=== PATIENT | female | born 1990 | race Caucasian/White ===

== ENCOUNTER 2016-07-05 16:10 | Outpatient (CLI) | payer MEDICAID ==
[2016-07-05 16:44] VITALS: BP 113/70
== END 2016-07-05 17:35 | disposition home or self-care (01) ==
LOC: TRG 16:10
PROVIDERS: ATTEND Obstetrics & Gynecology
DX: O47.1 False labor at or after 37 completed weeks of gestation (principal); Z3A.38 38 weeks gestation of pregnancy
CPT/HCPCS: 59025

== ENCOUNTER 2016-07-12 05:39 | Inpatient (IN) | payer MEDICAID ==
[2016-07-12] MEDS ORDERED: REGLAN IV ONE (05:50)
[2016-07-12] MEDS ORDERED: PEPCID IV ONE (05:50)
[2016-07-12] MEDS ORDERED: BICITRA PO ONE (05:50)
[2016-07-12] MEDS ORDERED: PITOCin/NS 20 UNIT/1000ML DRIP 20 UNITS/1,000 ML BAG IV SCH ×2 (06:00→11:57)
[2016-07-12] MEDS ORDERED: ANCEF/STERILE WATER 2 GM/20 ML 2 GM/20 ML SYRINGE IV NR (06:00)
[2016-07-12] MEDS: LACTATED RINGERS 1,000 ML IV SCH ×2 (07:00→07:12)
--- NOTE | 2016-07-12 07:20 | Anesthesia Day of Surgery ---
Anesthesia Day of Surgery - Day of Surgery Patient Examined: Yes Patient H&P Reviewed: Yes Patient is NPO: Yes
--- NOTE | 2016-07-12 07:20 | Anesthesia Consultation ---
Anesthesia Consult and Med Hx Date of service: 07/12/16 - Airway Anesthetic Teeth Evaluation: Good ROM Head & Neck: Adequate Mental/Hyoid Distance: Adequate Mallampati Class: Class II Intubation Access Assessment: Probably Good - Pre-Operative Health Status ASA Pre-Surgery Classification: ASA2 Proposed Anesthetic Plan: Epidural, Spinal - Pulmonary Hx Smoking: No Hx Asthma: No COPD: No Hx Pneumonia: No - Cardiovascular System Hx Hypertension: No Hx Coronary Artery Disease: No Hx Heart Attack/AMI: No Hx Angina: No - Central Nervous System Hx Seizures: No CVA: No Hx Psychiatric Problems: No - Gastrointestinal Hx Gastroesophageal Reflux Disease: No - Endocrine Hx Renal Disease: No Hx End Stage Renal Disease: No Hx Liver Disease: No Hx Non-Insulin Dependent Diabetes: No Hx Thyroid Disease: No Hx Hypothyroidism: No Hx Hyperthyroidism: No - Hematic Hx Anemia: No Hx Sickle Cell Disease: No - Other Systems Hx Alcohol Use: No
[2016-07-12 07:23] LABS: Basophils % (Auto) 0.3 % (0.0-1.8); Eosinophils % (Auto) 0.6 % (0.0-4.3); Hematocrit 31.7 % (30.3-42.9); Hemoglobin 10.6 gm/dl (10.1-14.3); Mean Corpuscular HGB Conc 33 % (30-34); Mean Corpuscular Volume 74 fl (79-97); Platelet Count 296 K/mm3 (140-440); Red Blood Count 4.27 M/mm3 (3.65-5.03); Red Cell Distribution Width 16.1 % (13.2-15.2)
[2016-07-12 07:25] LABS: Mean Corpuscular Hemoglobin 25 pg (28-32)
--- NOTE | 2016-07-12 07:25 | History and Physical Report ---
History of Present Illness Date of examination: 07/12/16 Date of admission: 07/12/16 05:39 Chief complaint: Scheduled section History of present illness: Patient is a 25-year-old female 011 REBEKA 07/12/16 at 40 weeks with a history of previous 1 and presents for scheduled section. She reports rare contractions and denies vaginal bleeding or leakage of fluid. She has had care [facility] [employer], located by a low-lying posterior placenta that has resolved and chronic hypertension. Past History Past Medical History: hypertension Past Surgical History: section Family/Genetic History: diabetes, hypertension Social history: no significant social history - Obstetrical History Expected Date of Delivery: 07/12/16 Actual Gestation: 40 Week(s) 0 Day(s) : 3 Para: 1 Hx # Term Pregnancies: 1 Number of Pregnancies: 0 Spontaneous Abortions: 1 Induced : 0 Number of Living Children: 1 Medications and Allergies Allergies Allergy/AdvReac Type Severity Reaction Status Date / Time No Known Allergies Allergy Verified 07/05/16 16:44 Home Medications Medication Instructions Recorded Confirmed Last Taken Type Cgo286/FA/Omega3/Dha/Fish Oil 1 each PO DAILY 07/05/16 07/05/16 07/05/16 09:00 History [ Gummies] 1 Active Meds: Active Medications Lactated Ringer's (Lactated Ringers) 1,000 mls @ 2,250 mls/hr IV PREOP KATELYN Stop: 07/13/16 06:27 Last Admin: 07/12/16 07:12 Dose: 2,250 mls/hr Oxytocin/Sodium Chloride (Pitocin/Ns 20 Unit/1000ml Drip) 20 units in 1,000 mls @ 0 mls/hr IV TITR KATELYN PRN Reason: As Directed Fentanyl/Bupivacaine/Sodium Chlor (Fentanyl-Bupiv 2 Mcg/Ml-0.125%) 100 mls @ 8 mls/hr EPIDURAL TITR KATELYN PRN Reason: Protocol Influenza Virus Vaccine Quadrival (Fluarix Quad [id number](36 Mos+)) 60 mcg IM .ONCE ONE Stop: 07/12/16 06:59 Naloxone HCl (Narcan 0.4 Mg/1 Ml) 0.2 mg IV Q2MIN PRN PRN Reason: Res Rate </= 8 or 02 SAT < 92% Stop: 07/14/16 07:22 Ondansetron HCl (Zofran) 4 mg IV Q8H PRN PRN Reason: Nausea And Vomiting Promethazine HCl (Phenergan) 25 mg PO Q6H PRN PRN Reason: Nausea And Vomiting Promethazine HCl (Phenergan) 25 mg HI Q6H PRN PRN Reason: Nausea And Vomiting Sodium Chloride (Sodium Chloride Flush Syringe 10 Ml) 10 ml IV PRN NR Review of Systems All systems: negative - Vital Signs Vital signs: Vital Signs Pulse Pulse Ox 78 98 07/12/16 06:07 07/12/16 06:07 Temp Pulse Resp BP Pulse Ox 97.7 F 101 H 22 122/77 96 07/12/16 06:29 07/12/16 07:05 07/12/16 06:29 07/12/16 06:29 07/12/16 07:05 - Physical Exam Breasts: Positive: deferred Cardiovascular: Regular rate Lungs: Positive: Clear to auscultation Abdomen: Positive: soft (obese, gravid ) Uterus: Positive: enlarged (gravid ) Extremities: Positive: edema (trace ) - Obstetrical FHR: auscultation normal Uterine Contraction Monitor Mode: External Uterine Contraction Pattern: Irregular Uterine Tone Measurement Phase: Resting Results Result Diagrams: 07/12/16 06:35 Abnormal lab results 07/12/16 Range/Units 06:35 [place] % (Auto) 8.6 H (0.0-7.3) % [place] # 0.9 H (0.0-0.8) K/mm3 All other labs normal. Assessment and Plan A: IUP at 40w0d Previous x 1 Obesity Hypertension P: Proceed with repeat section and other indicated procedures.
[2016-07-12] MEDS ORDERED: MORPHINE ONE (07:39)
[2016-07-12] MEDS ORDERED: ePHEDrine SULFATE ONE (07:53)
--- NOTE | 2016-07-12 07:57 | Procedure Note ---
OB Delivery Note - Delivery Date of Delivery: 07/12/16 Surgeon: ARETHA GOLDSTEIN Estimated blood loss: other (800 mL) - Section Preop diagnosis: repeat Postop diagnosis: same section procedure: section, repeat low transverse Disposition: PACU Complications: none Narrative: Please see operative note - A at 1 minute: 8 at 5 minutes: 8 Infant Gender: Female (3657g (8lb 1 oz))
--- NOTE | 2016-07-12 07:57 | Operative Report ---
Operative Report Operative Report: Date of procedure: 07/12/2016 Preoperative diagnosis: #1 Intrauterine at 40 weeks 0 days #2 Previous section 1 #3 Obesity #4 Chronic hypertension Postoperative diagnosis: Same Procedure: Repeat low transverse section Surgeon: Brittany Donato M.D. Anesthesia: Spinal Findings: 1) Viable female , Apgars 8 and 8, weight 3657 g, (8 lb 1 oz). Terminal meconium 2) Normal-appearing uterus ovaries and tubes Estimated blood loss: 800 mL IV fluids: 1000 mL Urine output: 250 mL, clear at the end of the procedure Drains: [place] to gravity Specimens: Placenta to pathology Complications: None. Counts correct 3 Disposition: Stable to PACU Indication for procedure: The patient is a 25-year-old female at 40 weeks 0 days with a history of previous section 1 who presents for repeat delivery. Operation in detail: After the risks, benefits, alternatives and complications were explained to the patient she gave informed consent for the procedure. She was subsequently taken to the operating room where spinal anesthesia was noted to be adequate. She was subsequently placed in the dorsal supine position with leftward tilt and prepped and draped in a normal sterile fashion. heart tones were noted to be in the 145 s prior to incision. A timeout was performed. A Pfannenstiel skin incision was made with the knife and carried down to the layer of the fascia with the Bovie. The fascia was incised in the midline and the fascial incision was extended bilaterally with the Bovie. Attention was then turned to the superior aspect of the incision which was grasped with two Kochers, tented up, and dissected off the rectus muscles. Attention was then turned to the inferior aspect of the incision which was grasped with two Kochers , tented up and dissected off the rectus muscles. The rectus muscles were then in the midline and partially transected for adequate visualization. The peritoneum was then entered bluntly. The peritoneal incision was extended with good visualization of the bladder. The peritoneal incision was then stretched. An Robert self-retaining retractor was placed for visualization. The bladder blade was placed. The vesicouterine peritoneum was grasped with smooth pickups and incised with Metzenbaum scissors. Metzenbaum scissors were used to extend the incision bilaterally. The bladder flap was then created digitally and the bladder blade was replaced. A transverse incision was made in the lower uterine segment with a knife and extended bilaterally with the bandage scissors. The head was delivered without difficulty followed by shoulders and body. was bulb suctioned at delivery. The cord was clamped and cut and the was handed to NICU staff in attendance. Cord blood was collected. The placenta was then delivered manually. The uterus was then cleared of all clots and debris. The hysterotomy was then reapproximated with 0 Vicryl in a running locked fashion. A second layer of the same suture was used in imbricating fashion. An additional [id number] of 0 Vicryl was used to obtain hemostasis on the left side of the hysterotomy. The hysterotomy was inspected and hemostasis was noted. The Robert self- retaining retractor was removed. The gutters were irrigated and cleared of all clots and debris. The hysterotomy was again inspected and noted to be hemostatic. Surgicel was placed over the hysterotomy. The peritoneum was then reapproximated with 2-0 Vicryl in a running fashion. Surgicel was placed over the superior aspect of the rectus muscles bilaterally where it abutts the fascia. The fascia was reapproximated with 0 Vicryl in a running fashion. The subcutaneous tissue was reapproximated with 3-0 Vicryl in a running fashion. The skin was reapproximated with 4-0 Vicryl in a subcuticular fashion. The incision was then covered with steri strips and a pressure dressing. The procedure was then ended. The patient tolerated the procedure well and was taken to the PACU in stable condition. All instrument, lap, and needle counts were correct 3.
[2016-07-12] MEDS ORDERED: NACL 0.9% IR ONE (08:00)
[2016-07-12] MEDS ORDERED: NARCAN 0.4 MG/1 ML IV PRN ×2 (08:00→11:57)
[2016-07-12] MEDS ORDERED: PHENERGAN PR PRN (08:00)
[2016-07-12] MEDS ORDERED: fentaNYL-BUPIV 2 MCG/ML-0.125% 200 MCG/100 ML BAG EPIDURAL SCH (08:00)
[2016-07-12] MEDS ORDERED: ZOFRAN IV PRN ×2 (08:00→11:57)
[2016-07-12] MEDS ORDERED: SODIUM CHLORIDE FLUSH SYRINGE 10 ML IV PRN (08:00)
[2016-07-12] MEDS ORDERED: WATER FOR IRRIG STERILE IR ONE (08:00)
[2016-07-12] MEDS ORDERED: PHENERGAN PO PRN (08:00)
[2016-07-12] MEDS ORDERED: NACL 0.9% 1000 ML 1,000 ML ONE (08:19)
[2016-07-12] MEDS ORDERED: ZOFRAN ONE (08:35)
[2016-07-12] MEDS ORDERED: TUCKS PAD TP PRN (11:57)
[2016-07-12] MEDS ORDERED: LANSINOH TP PRN (11:57)
[2016-07-12] MEDS ORDERED: MYLICON PO PRN (11:57)
[2016-07-12] MEDS ORDERED: MORPHINE IV PRN ×2 (11:57)
[2016-07-12] MEDS ORDERED: TYLENOL PO PRN (11:57)
[2016-07-12] MEDS ORDERED: SODIUM CHLORIDE FLUSH SYRINGE 10 ML IV NR (11:57)
[2016-07-12] MEDS: TORADOL IV PRN ×2 (12:23→17:50)
[2016-07-12] MEDS ORDERED: D5LR 1,000 ML IV SCH (18:10)
[2016-07-12 22:52] LABS: Hematocrit 27.3 % (30.3-42.9); Hemoglobin 8.9 gm/dl (10.1-14.3)
[2016-07-13] MEDS: PERCOCET 5/325 PO PRN ×3 (08:21→21:53)
[2016-07-13] MEDS: MILK OF MAGNESIA PO SCH ×2 (08:21→21:55)
[2016-07-13] MEDS ORDERED: M-M-R II VACCINE SUB-Q ONE (09:43)
[2016-07-13] MEDS ORDERED: BOOSTRIX IM ONE (09:43)
[2016-07-13] MEDS: PRENATAL VITAMIN PO SCH (10:13)
[2016-07-13] MEDS: FEOSOL PO SCH (10:13)
[2016-07-13] MEDS ORDERED: FLUARIX QUAD 2016-2017(36 MOS+) IM ONE (12:00)
--- NOTE | 2016-07-13 12:36 | Progress Note ---
Subjective Date of service: 07/13/16 Interval history: 1st POD after Patient is in the bed, comfortable. Pain is well controlled with pain meds. Ambulated well. No residual neurological deficit. No anesthesia complications Objective - Constitutional Vitals: Vital Signs - 12hr 07/13/16 07/13/16 03:20 08:17 Temperature 98.2 F 98.4 F Pulse Rate [ 20 L From Monitor] Pulse Rate [ 100 H 96 H Right Brachial] Respiratory 18 Rate Blood Pressure 111/61 [Right Arm] - Labs CBC & Chem 7: 07/12/16 21:36 Labs: Abnormal lab results 07/12/16 Range/Units 21:36 Hgb 8.9 L (10.1-14.3) gm/dl Hct 27.3 L (30.3-42.9) %
[2016-07-13] MEDS: MOTRIN PO PRN (15:39)
[2016-07-14] MEDS: PERCOCET 5/325 PO PRN ×3 (04:59→16:00)
[2016-07-14] MEDS ORDERED: BOOSTRIX IM ONE (06:00)
--- NOTE | 2016-07-14 08:29 | Progress Note ---
Assessment and Plan A/P POD#2 Repeat LSTCS doing well no complaints, bleeding decreasing H/H 10.6/31.1--8.9/27.3 O+ no rhogam indicated bonding well with baby girl bowel movement VSS BP within normal range pain controlled with oral meds urinating well without assistance ambulating tolerating diet micronor for control d/c home met d/c parameters f/u in 2 weeks for Post op check Subjective - Subjective Date of service: 07/14/16 Principal diagnosis: s/p Repeat LSTCS Patient reports: appetite normal, voiding normally, pain well controlled, flatus , bowel movement, ambulating normally : doing well, nursing well Objective - Vital Signs Latest vital signs: Vital Signs Temp Pulse Resp BP 07/14/16 04:59 20 07/14/16 00:00 98.6 F 68 16 121/70 07/13/16 21:53 18 07/13/16 16:35 98.1 F 106 H 18 120/64 Intake and Output 07/13/16 07/14/16 07/14/16 22:59 06:59 14:59 Intake Total 720 1400 Balance 720 1400 Intake: Oral 720 600 Intake, Free Water 800 Other: Total, Intake Amount 720 300 # Voids Void 1 - Exam Breasts: Present: normal Cardiovascular: Present: Regular rate, Normal S1, Normal S2 Lungs: Present: Clear to auscultation, Normal air movement Abdomen: Present: normal appearance, soft, normal bowel sounds. Absent: distention, tenderness Vulva: both: normal Uterus: Present: normal, firm, fundal height below umbilicus (3cm below). Absent: bogginess, tenderness Extremities: Present: normal Deep Tendon Reflex Grade: Normal +2 Incision: Present: normal, dry, intact
--- NOTE | 2016-07-14 08:30 | Discharge Summary ---
Providers - Providers Date of Admission: 07/12/16 05:39 Date of discharge: 07/14/16 Attending physician: ARETHA GOLDSTEIN 07/12/16 11:57 Consult to [employer] Instructor [CONS] Routine Reason For Exam: Primary care physician: ARETHA GOLDSTEIN Hospitalization Reason for admission: section Delivery: Procedure: section Episiotomy: none Laceration: none Incision: normal, intact Other procedures: none complications: none Discharge diagnosis: IUP at term delivered [place] baby: female Condition at discharge: Good Disposition: DISCHARGED TO HOME OR SELFCARE Plan - Discharge Medications Prescriptions: Docusate Sodium [Colace] 100 mg PO BID PRN #60 capsule PRN Reason: Pain Ferrous Sulfate [Feosol 325 MG tab] 325 mg PO BID #60 tablet Ibuprofen [Motrin] 800 mg PO Q8HR PRN #30 tablet PRN Reason: Pain oxyCODONE /ACETAMINOPHEN [Percocet 5/325] 1 tab PO Q6HR PRN #40 tablet PRN Reason: Pain Vit-Fe Fumar-FA [ Vitamin] 1 tab PO QDAY #30 tablet - Provider Discharge Summary Activity: no sex for 6 weeks Diet: routine Instructions: routine Additional instructions: [] Smoking cessation referral if applicable(refer to patient education folder for contact #) [] Refer to [facility]'s [facility] Booklet Call your doctor immediately for: * Fever > 100.5 * Heavy vaginal bleeding ( >1 pad per hour) * Severe persistent headache * Shortness of breath * Reddened, hot, painful area to leg or breast * Drainage or odor from incision. * Keep incision clean and dry at all times and follow doctor's instructions regarding bathing/showering - Follow up plan Follow up: ARETHA GOLDSTEIN MD [Primary Care Provider] - 14 Days
[2016-07-14] MEDS: MOTRIN PO PRN ×2 (10:39→16:03)
[2016-07-14] MEDS: PRENATAL VITAMIN PO SCH (10:47)
[2016-07-14] MEDS: FEOSOL PO SCH (10:49)
[2016-07-14 19:15] VITALS: BP 121/77
== END 2016-07-14 16:45 | disposition home or self-care (01) | DRG 765 ==
LOC: APU 05:39 → OB 11:12
PROVIDERS: ADMIT Obstetrics & Gynecology; ATTEND Obstetrics & Gynecology
PROC: 10D00Z1 Extraction of Products of Conception, Low, Open Approach (ICD-10-PCS; principal; 2016-07-12)
DX: O34.211 Maternal care for low transverse scar from previous cesarean delivery (principal); O16.4 Unspecified maternal hypertension, complicating childbirth; O77.0 Labor and delivery complicated by meconium in amniotic fluid; O99.214 Obesity complicating childbirth; Z3A.40 40 weeks gestation of pregnancy; Z37.0 Single live birth; Z83.3 Family history of diabetes mellitus; Z82.49 Family history of ischemic heart disease and other diseases of the circulatory system; Z68.35 Body mass index [BMI] 35.0-35.9, adult
CPT/HCPCS: 36415; 85014; 85018; 85025; 86850; 86900; 86901; 88307; 90471; 90715; 99211; A6250; G0463; J0690; J1885; J2270; J2405; J2590; J2765; J7030; J7120; J7121